=== PATIENT | female | born 1955 | race Caucasian/White ===

== ENCOUNTER 2020-04-01 15:15 | Outpatient (REF) | payer BC, SELFPAY ==
--- NOTE | 2020-04-01 13:45 | PAPFT_PTH ---
PATIENT: Richa Simpson LOC: [facility]#:[id number] AGE/SX: 65/F ROOM: RE04/01/[address]: Vidhi Howard : 1955 BED: DIS: 04/01/2020 SPEC #: [id number] RECD: 04/04/20 13:04 STATUS: MERLIN REAmbrose #: [id number] NESS: 04/01/20 13:[address]: Vidhi Howard DEPT: [facility] Cytology RECD BY: Roz Peguero Tissues: 1 - CX/ENDOCX FOR PAP SMEARS Procedures: PAP THIN PREP/[facility] Screening HPV DNA PROBE Comments: [id number]
== END 2020-04-01 15:35 ==
LOC: NCHCN 15:15
PROVIDERS: PCP Family Medicine; Visit Provider Family Medicine
DX: Z12.4 Encounter for screening for malignant neoplasm of cervix (principal); Z11.51 Encounter for screening for human papillomavirus (HPV)
CPT/HCPCS: 88142; 87624

== ENCOUNTER 2021-02-20 15:38 | Outpatient (REF) | payer MEDICARE, BC, SELFPAY ==
[2021-02-20 21:39] LABS: Abs Immature Grans 0.01 10^3/uL (0.0-0.06); HGB 12.7 g/dL (11.2-15.7); MCH 30.5 pg (27.0-33.0); MCHC 32.6 % (32.0-36.0); MCV 93.5 fL (80-95); MPV 11.5 fL (8.0-11.0); Nucleated RBC 0 %; Platelet Count 226 10^3/uL (130-400); RBC 4.17 10^6/uL (3.93-5.22); RDW 13.8 % (11.7-14.6); WBC 4.27 10^3/uL (4.4-10.8)
[2021-02-20 22:09] LABS: ALT 54 U/L (14-59); AST 63 U/L (15-37); Albumin 3.7 g/dL (3.4-5.0); Alkaline Phosphatase 53 U/L (46-116); Anion Gap 9.8 mmol/L (3-11); BUN 9 mg/dL (7-18); Bilirubin, Total 0.5 mg/dL (0.2-1.0); CO2 27.2 mmol/L (21.0-32.0); CREATININE 0.8 mg/dL (0.55-1.02); Calcium 8.4 mg/dL (8.5-10.1); Chloride 105 mmol/L (98-107); Glucose 92 mg/dL (74-106); Potassium 4.1 mmol/L (3.5-5.1); Sodium 142 mmol/L (136-145); Total Protein 6.5 g/dL (6.4-8.2)
[2021-02-20 22:15] LABS: Absolute Neutrophil Count 2.31 10^3/uL (1.2-6.7)
[2021-02-20 22:16] LABS: Absolute Basophil Count 0.09 10^3/uL (0.0-0.2); Absolute Eosinophil Count 0.09 10^3/uL (0.0-0.7); Absolute Lymphocyte Count 1.28 10^3/uL (1.2-3.4); Absolute Monocyte Count 0.51 10^3/uL (0.1-0.8); Atypical Lymphocytes % 2; Diff Comment Manual Differential; RBC Morphology Normal
[2021-02-22 10:37] LABS: Lyme Ab w Rflx to Lyme Confirm Positive (Negative)
[2021-02-23 14:16] LABS: IgG Immunoblot Negative (Negative); IgM Band(s) p41; IgM Immunoblot Positive (Negative)
[2021-02-23 16:33] LABS: Anaplasma phagocytophilum Negative (Negative); B. miyamotoi PCR Negative (Negative); Babesia divergens/MO-1 Negative (Negative); Babesia duncani Negative (Negative); Ehrlichia chaffeensis Negative (Negative); Ehrlichia ewingii/canis Negative (Negative); Ehrlichia muris eauclairensis Negative (Negative)
[2021-02-23 16:41] LABS: Babesia microti Positive (Negative)
== END 2021-02-20 15:39 | disposition home or self-care (01) ==
LOC: NCHCN 15:38
PROVIDERS: PCP Family Medicine; Visit Provider Nurse Practitioner Family
DX: B34.9 Viral infection, unspecified (principal)
CPT/HCPCS: 80053; 86617; 87798; 85025; 86618

== ENCOUNTER 2021-02-21 09:32 | Outpatient (REF) | payer MEDICARE, BC, SELFPAY ==
[2021-02-23 13:50] LABS: COVID-19 RT-PCR UVMMC Result Negative (Negative)
== END 2021-02-21 09:33 | disposition home or self-care (01) ==
LOC: NCHCN 09:32
PROVIDERS: PCP Family Medicine; Visit Provider Nurse Practitioner Family
DX: J06.9 Acute upper respiratory infection, unspecified (principal); Z20.822 Contact with and (suspected) exposure to COVID-19
CPT/HCPCS: U0003

== ENCOUNTER 2021-07-25 15:55 | Outpatient (REF) | payer MEDICARE, BC, SELFPAY ==
[2021-07-25 21:23] LABS: HCT 44.7 % (36.0-46.0); HGB 14.4 g/dL (11.2-15.7); MCH 30.4 pg (27.0-33.0); MCHC 32.2 % (32.0-36.0); MCV 94.5 fL (80-95); MPV 11.3 fL (8.0-11.0); Platelet Count 229 10^3/uL (130-400); RBC 4.73 10^6/uL (3.93-5.22); RDW 13.8 % (11.7-14.6); RDW-SD 48.4 fL; WBC 3.31 10^3/uL (4.4-10.8)
[2021-07-25 21:35] LABS: ALT 21 U/L (14-59); AST 32 U/L (15-37); Albumin 4.4 g/dL (3.4-5.0); Alkaline Phosphatase 59 U/L (46-116); Anion Gap 9.1 mmol/L (3-11); BUN 17 mg/dL (7-18); Bilirubin, Total 0.8 mg/dL (0.2-1.0); CO2 26.9 mmol/L (21.0-32.0); CREATININE 0.7 mg/dL (0.55-1.02); Calcium 9.2 mg/dL (8.5-10.1); Chloride 105 mmol/L (98-107); Glucose 84 mg/dL (74-106); Potassium 4.4 mmol/L (3.5-5.1); Sodium 141 mmol/L (136-145); Total Protein 7.1 g/dL (6.4-8.2)
[2021-07-27 15:08] LABS: COVID-19 RT-PCR UVMMC Result Negative (Negative)
== END 2021-07-25 15:56 | disposition home or self-care (01) ==
LOC: NCHCN 15:55
PROVIDERS: PCP Family Medicine; Visit Provider Family Medicine
DX: D72.819 Decreased white blood cell count, unspecified (principal); I49.1 Atrial premature depolarization; Z86.2 Personal history of diseases of the blood and blood-forming organs and certain disorders involving the immune mechanism; Z20.822 Contact with and (suspected) exposure to COVID-19; J06.9 Acute upper respiratory infection, unspecified
CPT/HCPCS: 80053; 85027; U0003

== ENCOUNTER 2021-08-31 09:40 | Outpatient (REF) | payer MEDICARE, BC, SELFPAY ==
[2021-08-31 15:35] LABS: Abs Immature Grans 0.01 10^3/uL (0.0-0.06); Absolute Basophil Count 0.05 10^3/uL (0.0-0.2); Absolute Eosinophil Count 0.06 10^3/uL (0.0-0.7); Absolute Lymphocyte Count 1.34 10^3/uL (1.2-3.4); Absolute Monocyte Count 0.42 10^3/uL (0.1-0.8); Absolute Neutrophil Count 2.86 10^3/uL (1.2-6.7); Basophils % 1.1; Eosinophils % 1.3; HCT 41.5 % (36.0-46.0); HGB 13.2 g/dL (11.2-15.7); Immature Grans % 0.2; Lymphocytes % 28.3; MCH 30.7 pg (27.0-33.0); MCHC 31.8 % (32.0-36.0); MCV 96.5 fL (80-95); MPV 11.2 fL (8.0-11.0); Monocytes % 8.9; Neutrophils % 60.2; Nucleated RBC 0 %; Platelet Count 227 10^3/uL (130-400); RDW 13.6 % (11.7-14.6); RDW-SD 48.8 fL; WBC 4.74 10^3/uL (4.4-10.8)
== END 2021-08-31 09:41 | disposition home or self-care (01) ==
LOC: NCHCN 09:40
PROVIDERS: PCP Family Medicine; Visit Provider Family Medicine
DX: D72.819 Decreased white blood cell count, unspecified (principal)
CPT/HCPCS: 85025

== ENCOUNTER 2022-08-06 14:44 | Outpatient (REF) | payer MEDICARE, BC, SELFPAY ==
[2022-08-06 15:00] LABS: HCT 43.5 % (36.0-46.0); HGB 14.6 g/dL (11.2-15.7); MCH 30.9 pg (27.0-33.0); MCHC 33.6 % (32.0-36.0); MCV 92 fL (80-95); MPV 11.5 fL (8.0-11.0); Platelet Count 194 10^3/uL (130-400); RBC 4.72 10^6/uL (3.93-5.22); RDW 13.3 % (11.7-14.6); WBC 3.66 10^3/uL (4.4-10.8)
[2022-08-06 15:16] LABS: ALT 19 U/L (14-59); AST 25 U/L (15-37); Albumin 4.2 g/dL (3.4-5.0); Alkaline Phosphatase 64 U/L (46-116); Anion Gap 7.4 mmol/L (3-11); BUN 13 mg/dL (7-18); Bilirubin, Total 0.9 mg/dL (0.2-1.0); CO2 28.6 mmol/L (21.0-32.0); CREATININE 0.7 mg/dL (0.55-1.02); Calcium 9.1 mg/dL (8.5-10.1); Chloride 103 mmol/L (98-107); Estimated GFR 95.32 (mL/min/1.73m2); Glucose 93 mg/dL (74-106); Sodium 139 mmol/L (136-145); Total Protein 7.1 g/dL (6.4-8.2)
== END 2022-08-06 14:45 | disposition home or self-care (01) ==
LOC: NCHCN 14:44
PROVIDERS: PCP Family Medicine; Visit Provider Nurse Practitioner Family
DX: R53.81 Other malaise (principal)
CPT/HCPCS: 80053; 85027

== ENCOUNTER 2023-08-01 16:33 | Outpatient (REF) | payer MEDICARE, BC, SELFPAY ==
[2023-08-05 11:00] LABS: Lyme Ab w Rflx to Lyme Confirm Negative (Negative)
[2023-08-05 16:37] LABS: Anaplasma phagocytophilum Negative (Negative); B. miyamotoi PCR Negative (Negative); Babesia divergens/MO-1 Negative (Negative); Babesia duncani Negative (Negative); Babesia microti Negative (Negative); Ehrlichia chaffeensis Negative (Negative); Ehrlichia ewingii/canis Negative (Negative); Ehrlichia muris eauclairensis Negative (Negative)
== END 2023-08-01 16:34 | disposition home or self-care (01) ==
LOC: NCHCN 16:33
PROVIDERS: PCP Family Medicine; Visit Provider Family Medicine
DX: M79.18 Myalgia, other site (principal)
CPT/HCPCS: 87798; 86618